=== PATIENT | female | born 1970 | race American Indian/Alaskan Native ===

== ENCOUNTER 2016-12-21 18:07 | Outpatient (CLI) | payer BC | END 2016-12-21 18:08 | disposition home or self-care (01) | LOC: LABHHL 18:07 | PROVIDERS: ATTEND Surgery | DX: N63 Unspecified lump in breast (principal) | CPT/HCPCS: 88305 ==

== ENCOUNTER 2017-01-04 11:20 | Outpatient (CLI) | payer BC ==
--- NOTE | 2017-01-04 12:55 | Mammography Report ---
RIGHT DIGITAL DIAGNOSTIC MAMMOGRAM: 01/04/17 11:20:00 CLINICAL: For clip placement status post ultrasound biopsy. A 1.4 cm mass was described on an OPI ultrasound but the pathology result is benign fibrocystic breast tissue. COMPARISON:11/12/16 and 10/08/16 mammograms. FINDINGS: A biopsy clip is now identified in the vicinity of the previously described mammographic focal asymmetry. There is slight discordance in clip position with the previous mammograms and there is no distinct mass on the current mammogram. On the prior exams, a well-defined asymmetry is more obvious on the lateral and MLO spot views. IMPRESSION: Slight discordance and nonspecific benign pathology. Recommend repeat ultrasound-guided biopsy. BI-RADS CATEGORY: 4--Suspicious
== END 2017-01-04 11:21 | disposition home or self-care (01) ==
LOC: SPVWC 11:20
PROVIDERS: ATTEND Surgery
DX: N60.11 Diffuse cystic mastopathy of right breast (principal); N64.89 Other specified disorders of breast
CPT/HCPCS: G0206-RT